=== PATIENT | female | born 2000 | race Caucasian/White ===

== ENCOUNTER 2023-10-18 11:36 | Outpatient (CLI) | payer BC, MEDICAID | END 2023-10-18 23:59 | disposition home or self-care (01) | LOC: RAD 11:36 | PROVIDERS: ATTEND Nurse Practitioner Obstetrics & Gynecology | DX: O09.93 Supervision of high risk pregnancy, unspecified, third trimester (principal); Z3A.00 Weeks of gestation of pregnancy not specified | CPT/HCPCS: 76815 ==